=== PATIENT | female | born 1960 | race Caucasian/White ===

== ENCOUNTER → 2016-07-13 | Outpatient (CLI) | payer BC ==
--- NOTE | 2016-07-13 16:52 | DIAGNOSTIC IMAGING REPORT ---
RIGHT TIBIA/FIBULA 2 VIEWS ROUTINE CLINICAL HISTORY: Right leg pain, bruising and swelling. COMPARISON: None FINDINGS: No fracture or suspicious osseous lesion is identified within the right tibia or fibula. There is no radiographic evidence of a stress fracture. Soft tissues are unremarkable by radiography. IMPRESSION: No osseous abnormality of the right tibia or fibula. Electronically signed by: Michael Saxena M.D. 07/13/2016 4:51 PM Dictated Date/Time: 07/13/2016 4:50 PM
== END | disposition home or self-care (01) ==
LOC: C.RAD1850 15:53
PROVIDERS: ATTEND Family Medicine
DX: M79.604 Pain in right leg (principal)